=== PATIENT | male | born 1945 | race American Indian/Alaskan Native ===

== ENCOUNTER 2023-07-05 12:20 | Inpatient (IN) | payer OTHER ==
[2023-06-30 10:54] VITALS: BMI 22.1
[~2023-07-05 12:20] MED LIST: BUPIVACAINE HCL/PF 0.5% (5MG/ML) 10 ML VIAL IJ ONE; BUPIVACAINE LIPOSOME/PF (EXPAREL) 266 MG/20 ML VIAL NR ONE; GENTAMICIN SO4 80 MG/2 ML VIAL IVPB ONE; HYDROGEN PEROXIDE 473 ML PO ONE; LIDOCAINE 1%/EPI 1:100000 (50 ML MULTI DOSE VIAL) NR ONE; THROMBIN (BOVINE) 20,000 UNIT VIAL TP ONE
[2023-07-05] MEDS ORDERED: GENTAMICIN SO4 80 MG/2 ML VIAL ONE (12:56)
[2023-07-05] MEDS ORDERED: THROMBIN (BOVINE) 5,000 UNIT VIAL TP ONE (12:56)
[2023-07-05] MEDS ORDERED: BUPIVACAINE HCL/PF 0.5% (5MG/ML) 10 ML VIAL ONE (13:41)
[2023-07-05] MEDS ORDERED: BUPIVACAINE LIPOSOME/PF (EXPAREL) 266 MG/20 ML VIAL ONE (13:41)
[2023-07-05 14:05] LABS: POTASSIUM 3.9 mmol/L (3.5-5.1)
[2023-07-05 14:07] LABS: ALBUMIN 3.5 g/dl (3.4-5.0); CALCIUM 8.5 mg/dL (8.5-10.1)
[2023-07-05 14:08] LABS: BLOOD UREA NITROGEN 39.5 mg/dL (7-18)
[2023-07-05 14:09] LABS: CREATININE 3.1 mg/dL (0.55-1.3)
[2023-07-05 14:11] LABS: BILIRUBIN,TOTAL 0.1 mg/dL (0.2-1); TOT PROT 6.6 g/dl (6.4-8.2)
[2023-07-05] MEDS ORDERED: MIDAZOLAM HCL 2 MG/2 ML SINGLE DOSE VIAL ONE (14:13)
[2023-07-05] MEDS ORDERED: SODIUM CHLORIDE 0.9% P/F 10 ML VIAL IJ ONE (14:13)
[2023-07-05] MEDS ORDERED: ceFAZolin SODIUM 1 GM VIAL ONE (14:13)
[2023-07-05] MEDS ORDERED: LIDOCAINE HCL/PF 2% SDV 5ML VIAL ONE (14:13)
[2023-07-05] MEDS ORDERED: ETOMIDATE 20 MG/10 ML VIAL IVPUSH ONE (14:14)
[2023-07-05] MEDS ORDERED: ceFAZolin SODIUM 1 GM VIAL IVPB ONE (14:31)
[2023-07-05] MEDS ORDERED: VANCOMYCIN 1,000 MG VIAL (RESTRICTED TO ID ONLY) ONE (14:39)
[2023-07-05] MEDS ORDERED: ONDANSETRON 4 MG/2 ML VIAL ONE (14:41)
[2023-07-05] MEDS ORDERED: DEXAMETHASONE SOD PHOSPHATE 4 MG/1 ML VIAL ONE (14:41)
[2023-07-05] MEDS ORDERED: TRANEXAMIC ACID 1000 MG/10 ML VIAL ONE (14:41)
[2023-07-05] MEDS ORDERED: VANCOMYCIN 1 GM in NS (PRE-DOCKED) 1,000 MG/250 ML (RESTRICTED TO ID ONLY) IVPB ONE (14:45)
[2023-07-05] MEDS ORDERED: LIDOCAINE 1%/EPI 1:100000 (50 ML MULTI DOSE VIAL) NR ONE (14:52)
[2023-07-05] MEDS ORDERED: ROCURONIUM BROMIDE 50 MG/5 ML SYRINGE ONE (15:11)
[2023-07-05] MEDS ORDERED: HYDROGEN PEROXIDE 473 ML PO ONE (15:30)
[2023-07-05] MEDS ORDERED: GENTAMICIN SO4 80 MG/2 ML VIAL IVPB ONE (15:30)
[2023-07-05] MEDS ORDERED: BUPIVACAINE HCL/PF 0.5% (5MG/ML) 10 ML VIAL IJ ONE (16:02)
[2023-07-05] MEDS ORDERED: BUPIVACAINE LIPOSOME/PF (EXPAREL) 266 MG/20 ML VIAL NR ONE (16:02)
[2023-07-05] MEDS ORDERED: PROPOFOL 20 ML ONE (16:09)
[2023-07-05] MEDS ORDERED: NEOSTIGMINE METHYLSULFATE 0.5 MG/1 ML - 10 ML MDV ONE (16:20)
[2023-07-05] MEDS ORDERED: GLYCOPYRROLATE 0.2 MG/1 ML VIAL ONE (16:20)
[2023-07-05] MEDS ORDERED: ACETAMINOPHEN INJECTION 100 ML IVPB ONE (16:34)
[2023-07-05] MEDS ORDERED: morphine SULFATE 4 MG/ML VIAL IVPUSH PRN (17:02)
[2023-07-05] MEDS ORDERED: diphenhydrAMINE HCL 25 MG CAPSULE (FP) PO PRN (17:02)
[2023-07-05] MEDS ORDERED: ONDANSETRON 4 MG/2 ML VIAL IVPUSH PRN ×3 (17:02→17:08)
[2023-07-05] MEDS ORDERED: oxyCODONE HCL 5 MG TABLET PO PRN ×2 (17:02)
[2023-07-05] MEDS ORDERED: PROMETHAZINE HCL 25 MG/1 ML VIAL IVPB PRN ×2 (17:08)
[2023-07-05] MEDS ORDERED: DEXAMETHASONE SOD PHOSPHATE 4 MG/1 ML VIAL IVPUSH PRN (17:08)
[2023-07-05] MEDS ORDERED: SODIUM CHLORIDE 1,000 ML IV SCH ×2 (17:15)
[2023-07-05] MEDS: SODIUM CHLORIDE 1,000 ML IV SCH (17:30)
[2023-07-05] MEDS: HYDROmorphone *PCA* 10MG/50ML DISP.SYRIN PCA SCH ×3 (17:30→20:51)
[2023-07-05] MEDS ORDERED: CEFAZOLIN 1 GM in DEXTROSE 5%-WATER - 50 ML IVPB SCH (18:00)
[2023-07-05] MEDS: DOCUSATE SODIUM 100 MG CAPSULE (FP) PO SCH (21:54)
[2023-07-05] MEDS: CEFAZOLIN 1 GM in DEXTROSE 5%-WATER - 50 ML IVPB SCH (21:54)
[2023-07-05] MEDS: ATORVASTATIN CA 40 MG TABLET (FP) PO SCH (21:54)
[2023-07-06] MEDS: SODIUM CHLORIDE 1,000 ML IV SCH ×2 (01:31→10:02)
[2023-07-06] MEDS: HEPARIN NA (PORCINE) 5,000 UNITS/ML 1ML VIAL SQ SCH ×3 (05:11→22:13)
[2023-07-06] MEDS: CEFAZOLIN 1 GM in DEXTROSE 5%-WATER - 50 ML IVPB SCH ×2 (05:11→14:30)
[2023-07-06] MEDS: DOCUSATE SODIUM 100 MG CAPSULE (FP) PO SCH ×3 (05:11→22:14)
[2023-07-06 09:02] LABS: HEMATOCRIT 28.6 % (35.4-49); HEMOGLOBIN 8.9 GM/dL (11.7-16.9); MCH 29.4 pg (25.7-33.7); MCHC 31.1 g/dl (32.0-35.9); MEAN CELL VOLUME 94.4 fl (80-96); MEAN PLT VOLUME 9.5 fl (7.5-11.1); PLATELET COUNT 199 10^3/uL (134-434); RBC 3.03 M/mm3 (4.00-5.60); RDW 13.9 % (11.9-15.9); WHITE BLOOD COUNT 12.8 K/mm3 (4.0-10.0)
[2023-07-06 09:08] LABS: POTASSIUM 4.9 mmol/L (3.5-5.1)
[2023-07-06 09:17] LABS: BLOOD UREA NITROGEN 37.8 mg/dL (7-18); CALCIUM 8.2 mg/dL (8.5-10.1)
[2023-07-06 09:21] LABS: CREATININE 3.1 mg/dL (0.55-1.3)
[2023-07-06] MEDS ORDERED: LOSARTAN POTASSIUM 50 MG TABLET PO SCH (10:00)
[2023-07-06] MEDS ORDERED: FUROSEMIDE 40 MG TABLET (FP) PO SCH (10:00)
[2023-07-06] MEDS: NIFEdipine E.R. 90 MG TABLET PO SCH (10:01)
[2023-07-06] MEDS: MULTIVITAMINS (DAILY MVI) TABLET (FP) PO SCH (10:01)
[2023-07-06] MEDS: METOPROLOL TARTRATE 50 MG TABLET (FP) PO SCH (10:01)
[2023-07-06] MEDS: FOLIC ACID 1 MG TABLET (FP) PO SCH (10:01)
[2023-07-06] MEDS: ACETAMINOPHEN 500 MG TABLET (FP) PO SCH ×3 (11:37→22:14)
[2023-07-06] MEDS: HYDROmorphone *PCA* 10MG/50ML DISP.SYRIN PCA SCH (16:37)
[2023-07-06] MEDS: SODIUM CHLORIDE 0.45% 1,000 ML IV SCH (16:54)
[2023-07-06] MEDS: ATORVASTATIN CA 40 MG TABLET (FP) PO SCH (22:14)
[2023-07-07] MEDS: HEPARIN NA (PORCINE) 5,000 UNITS/ML 1ML VIAL SQ SCH ×2 (06:03→14:10)
[2023-07-07] MEDS: ACETAMINOPHEN 500 MG TABLET (FP) PO SCH ×4 (06:43→22:19)
[2023-07-07] MEDS: DOCUSATE SODIUM 100 MG CAPSULE (FP) PO SCH ×2 (07:01→13:55)
[2023-07-07 07:49] LABS: BASO % 0.3 % (0-2.0); EOS % 0.6 % (0-4.5); HEMATOCRIT 26.9 % (35.4-49); HEMOGLOBIN 8.6 GM/dL (11.7-16.9); LYMPH % 7.5 % (8-40); MCH 29.8 pg (25.7-33.7); MCHC 32.1 g/dl (32.0-35.9); MEAN PLT VOLUME 9.5 fl (7.5-11.1); MONO % 13.4 % (3.8-10.2); NEUT % 78.2 % (42.8-82.8); PLATELET COUNT 158 10^3/uL (134-434); RDW 13.6 % (11.9-15.9); WHITE BLOOD COUNT 11.2 K/mm3 (4.0-10.0)
[2023-07-07 08:07] LABS: POTASSIUM 4.1 mmol/L (3.5-5.1)
[2023-07-07 08:10] LABS: BLOOD UREA NITROGEN 33.9 mg/dL (7-18); MAGNESIUM 1.4 mg/dL (1.8-2.4)
[2023-07-07 08:14] LABS: BILIRUBIN,TOTAL 0.4 mg/dL (0.2-1); CREATININE 2.8 mg/dL (0.55-1.3); TOT PROT 5.7 g/dl (6.4-8.2)
[2023-07-07 08:40] LABS: ALBUMIN 2.8 g/dl (3.4-5.0)
[2023-07-07] MEDS: NIFEdipine E.R. 90 MG TABLET PO SCH (09:39)
[2023-07-07] MEDS: METOPROLOL TARTRATE 50 MG TABLET (FP) PO SCH (09:39)
[2023-07-07] MEDS: MULTIVITAMINS (DAILY MVI) TABLET (FP) PO SCH (09:39)
[2023-07-07] MEDS: FOLIC ACID 1 MG TABLET (FP) PO SCH (09:39)
[2023-07-07] MEDS ORDERED: MAGNESIUM SULF 50% (8.12 MEQ/2 ML-1 GM VIAL) IVPB ONE (10:00)
[2023-07-07] MEDS ORDERED: MAGNESIUM OXIDE 400 MG TABLET (FP) PO SCH (12:15)
[2023-07-07] MEDS: SODIUM CHLORIDE 0.45% 1,000 ML IV SCH ×2 (13:55→16:43)
[2023-07-07] MEDS: HYDROmorphone *PCA* 10MG/50ML DISP.SYRIN PCA SCH (19:08)
[2023-07-07] MEDS: ATORVASTATIN CA 40 MG TABLET (FP) PO SCH (22:19)
[2023-07-08] MEDS: ACETAMINOPHEN 500 MG TABLET (FP) PO SCH (05:27)
[2023-07-08] MEDS ORDERED: traMADol HCL 50 MG TABLET PO PRN ×2 (08:37→15:42)
[2023-07-08 08:54] LABS: BASO % 0.3 % (0-2.0); EOS % 2.2 % (0-4.5); HEMATOCRIT 23.1 % (35.4-49); HEMOGLOBIN 7.5 GM/dL (11.7-16.9); LYMPH % 9.4 % (8-40); MCH 30.3 pg (25.7-33.7); MCHC 32.6 g/dl (32.0-35.9); MEAN CELL VOLUME 92.9 fl (80-96); MEAN PLT VOLUME 9.5 fl (7.5-11.1); MONO % 13.2 % (3.8-10.2); NEUT % 74.9 % (42.8-82.8); PLATELET COUNT 139 10^3/uL (134-434); RBC 2.48 M/mm3 (4.00-5.60); RDW 13.3 % (11.9-15.9); WHITE BLOOD COUNT 9.5 K/mm3 (4.0-10.0)
[2023-07-08 09:35] LABS: CALCIUM 7.8 mg/dL (8.5-10.1)
[2023-07-08 09:36] LABS: ALBUMIN 2.4 g/dl (3.4-5.0); BLOOD UREA NITROGEN 29.8 mg/dL (7-18); MAGNESIUM 1.9 mg/dL (1.8-2.4)
[2023-07-08 09:39] LABS: CREATININE 2.5 mg/dL (0.55-1.3)
[2023-07-08 09:40] LABS: BILIRUBIN,TOTAL 0.3 mg/dL (0.2-1)
[2023-07-08] MEDS: METOPROLOL TARTRATE 50 MG TABLET (FP) PO SCH (10:35)
[2023-07-08] MEDS: MULTIVITAMINS (DAILY MVI) TABLET (FP) PO SCH (10:35)
[2023-07-08] MEDS: NIFEdipine E.R. 90 MG TABLET PO SCH (10:35)
[2023-07-08] MEDS ORDERED: oxyCODONE HCL 5 MG TABLET PO PRN (15:40)
[2023-07-08] MEDS ORDERED: ACETAMINOPHEN 325 MG TABLET (FP) PO PRN (15:42)
[2023-07-08] MEDS: oxyCODONE HCL 5 MG TABLET PO PRN ×2 (17:36→21:48)
[2023-07-08] MEDS: ATORVASTATIN CA 40 MG TABLET (FP) PO SCH (22:12)
[2023-07-09 07:53] LABS: BASO % 0.3 % (0-2.0); EOS % 1.1 % (0-4.5); HEMATOCRIT 22.9 % (35.4-49); HEMOGLOBIN 7.4 GM/dL (11.7-16.9); LYMPH % 8.1 % (8-40); MCH 30.1 pg (25.7-33.7); MCHC 32.5 g/dl (32.0-35.9); MEAN CELL VOLUME 92.6 fl (80-96); NEUT % 74.5 % (42.8-82.8); PLATELET COUNT 177 10^3/uL (134-434); RBC 2.47 M/mm3 (4.00-5.60); RDW 13.5 % (11.9-15.9); WHITE BLOOD COUNT 7.8 K/mm3 (4.0-10.0)
[2023-07-09] MEDS: oxyCODONE HCL 5 MG TABLET PO PRN ×2 (07:55→14:18)
[2023-07-09 08:08] LABS: POTASSIUM 4.5 mmol/L (3.5-5.1)
[2023-07-09 08:10] LABS: CALCIUM 7.7 mg/dL (8.5-10.1)
[2023-07-09 08:11] LABS: ALBUMIN 2.3 g/dl (3.4-5.0); BLOOD UREA NITROGEN 26.3 mg/dL (7-18); MAGNESIUM 1.9 mg/dL (1.8-2.4)
[2023-07-09] MEDS ORDERED: CYCLOBENZAPRINE HCL 10 MG TABLET (FP) PO PRN (08:12)
[2023-07-09 08:14] LABS: CREATININE 2.2 mg/dL (0.55-1.3)
[2023-07-09 08:15] LABS: BILIRUBIN,TOTAL 0.3 mg/dL (0.2-1)
[2023-07-09] MEDS: oxyCODONE HCL 10 MG SUSTAINED ACTING TABLET PO SCH ×2 (09:53→21:35)
[2023-07-09] MEDS: GABAPENTIN 100 MG CAPSULE PO SCH ×3 (09:53→21:35)
[2023-07-09] MEDS: MULTIVITAMINS (DAILY MVI) TABLET (FP) PO SCH (09:53)
[2023-07-09] MEDS: NIFEdipine E.R. 90 MG TABLET PO SCH (09:53)
[2023-07-09] MEDS: ACETAMINOPHEN 500 MG TABLET (FP) PO SCH ×3 (09:53→21:33)
[2023-07-09] MEDS: METOPROLOL TARTRATE 50 MG TABLET (FP) PO SCH (09:53)
[2023-07-09] MEDS: ATORVASTATIN CA 40 MG TABLET (FP) PO SCH (21:34)
[2023-07-10] MEDS: ACETAMINOPHEN 500 MG TABLET (FP) PO SCH ×4 (03:30→21:44)
[2023-07-10] MEDS: GABAPENTIN 100 MG CAPSULE PO SCH ×3 (05:15→21:43)
[2023-07-10] MEDS: MULTIVITAMINS (DAILY MVI) TABLET (FP) PO SCH (09:30)
[2023-07-10] MEDS: METOPROLOL TARTRATE 50 MG TABLET (FP) PO SCH (09:30)
[2023-07-10] MEDS: NIFEdipine E.R. 90 MG TABLET PO SCH (09:30)
[2023-07-10] MEDS: oxyCODONE HCL 10 MG SUSTAINED ACTING TABLET PO SCH ×2 (09:31→21:42)
[2023-07-10] MEDS: FUROSEMIDE 40 MG TABLET (FP) PO SCH (09:33)
[2023-07-10] MEDS ORDERED: POLYETHYLENE GLYCOL (HEALTHYLAX) 3350 17 GM PACKET PO SCH (11:30)
[2023-07-10] MEDS: oxyCODONE HCL 5 MG TABLET PO PRN (12:44)
[2023-07-10] MEDS: ATORVASTATIN CA 40 MG TABLET (FP) PO SCH (21:43)
[2023-07-11] MEDS: ACETAMINOPHEN 500 MG TABLET (FP) PO SCH ×2 (02:27→08:57)
[2023-07-11 06:26] VITALS: BP 126/53; PULSE 82; RESP 18; TEMP 98
[2023-07-11] MEDS: GABAPENTIN 100 MG CAPSULE PO SCH (06:50)
[2023-07-11] MEDS: NIFEdipine E.R. 90 MG TABLET PO SCH (09:16)
[2023-07-11] MEDS: oxyCODONE HCL 10 MG SUSTAINED ACTING TABLET PO SCH (09:16)
[2023-07-11] MEDS: MULTIVITAMINS (DAILY MVI) TABLET (FP) PO SCH (09:16)
[2023-07-11] MEDS: METOPROLOL TARTRATE 50 MG TABLET (FP) PO SCH (09:16)
[2023-07-11] MEDS: FUROSEMIDE 40 MG TABLET (FP) PO SCH (09:20)
[2023-07-11] MEDS ORDERED: POLYETHYLENE GLYCOL (HEALTHYLAX) 3350 17 GM PACKET PO SCH (10:00)
== END 2023-07-11 10:15 | disposition home health service (06) | DRG 472 ==
LOC: J2C 12:20 → J8W 20:11
PROVIDERS: ADMIT Neurological Surgery; ATTEND Nurse Practitioner Acute Care
PROC: 00Q20ZZ Repair Dura Mater, Open Approach (ICD-10-PCS; 2023-07-05)
PROC: 00NW0ZZ Release Cervical Spinal Cord, Open Approach (ICD-10-PCS; 2023-07-05)
PROC: 0PB30ZZ Excision of Cervical Vertebra, Open Approach (ICD-10-PCS; 2023-07-05)
PROC: 4A1004G Monitoring of Central Nervous Electrical Activity, Intraoperative, Open Approach (ICD-10-PCS; 2023-07-05)
PROC: 0RG2071 Fusion of 2 or more Cervical Vertebral Joints with Autologous Tissue Substitute, Posterior Approach, Posterior Column, Open Approach (ICD-10-PCS; principal; 2023-07-05 13:00)
DX: M47.12 Other spondylosis with myelopathy, cervical region (principal); G97.41 Accidental puncture or laceration of dura during a procedure; N17.9 Acute kidney failure, unspecified; M50.01 Cervical disc disorder with myelopathy, high cervical region; M50.023 Cervical disc disorder at C6-C7 level with myelopathy; M40.202 Unspecified kyphosis, cervical region; I12.9 Hypertensive chronic kidney disease with stage 1 through stage 4 chronic kidney disease, or unspecified chronic kidney disease; E11.9 Type 2 diabetes mellitus without complications; F17.210 Nicotine dependence, cigarettes, uncomplicated; N18.9 Chronic kidney disease, unspecified; E78.5 Hyperlipidemia, unspecified
CPT/HCPCS: 36415; 72125-TC; 76000-TC-FY; 76775-TC; 80048; 80053; 82570; 82962; 83036; 83735; 84300; 84540; 85025; 85027; 86850; 86900; 86901; 94760; 97116-GP; 97162-GP; C1713; J1644